=== PATIENT | female | born 1975 | race Caucasian/White ===

== ENCOUNTER → 2017-03-30 | Outpatient (CLI) | payer BC ==
[~2017-03-30] MED LIST: AMITRIPTYLINE H50 MG PO; CEROVITE ADVANC1 TAB PO; LEXAPRO20 MG PO; PROZAC40 MG PO; WELLBUTRIN SR150 MG PO
== END | disposition short-term general hospital (02) ==
LOC: CLENT 09:26
DX: H93.11 Tinnitus, right ear (principal); R42 Dizziness and giddiness; H91.90 Unspecified hearing loss, unspecified ear; H93.8X9 Other specified disorders of ear, unspecified ear; Z86.69 Personal history of other diseases of the nervous system and sense organs

== ENCOUNTER → 2017-04-20 | Outpatient (CLI) | payer BC | END | disposition short-term general hospital (02) | LOC: CLENT 08:50 | DX: H90.41 Sensorineural hearing loss, unilateral, right ear, with unrestricted hearing on the contralateral side (principal); H93.11 Tinnitus, right ear; R42 Dizziness and giddiness; H83.01 Labyrinthitis, right ear ==

== ENCOUNTER → 2017-05-04 | Outpatient (CLI) | payer BC | END | disposition short-term general hospital (02) | LOC: CLENT 09:11 | DX: H83.01 Labyrinthitis, right ear (principal); H93.19 Tinnitus, unspecified ear; H91.90 Unspecified hearing loss, unspecified ear; H93.8X9 Other specified disorders of ear, unspecified ear ==